=== PATIENT | female | born 1955 | race African-American/Black ===

== ENCOUNTER → 2019-10-05 | Outpatient (CLI) | payer MEDICARE ==
[~2019-10-05] MED LIST: REGADENOSON INJ 0.4 MG/5 ML DISP.SYRIN IV ONE
--- NOTE | 2019-10-05 15:00 | DRAGON STRESS TEST REPORT ---
Pharmacological nuclear stress test Date: October 07, 2019 Indication: Chest pain, abnormal EKG Clinical history 64-year-old lady was seen as part of preoperative cardiovascular assessment prior to upcoming bilateral mastectomy. She reported episodes of chest pain. There is medical history of hypertension as well as nicotine dependence in the past. Procedure The patient presented to the stress lab. Initially rest images were obtained according to standard protocol after injection of 14.74 mCi of technetium 99m sestamibi. The patient's EKG and vital signs were monitored throughout the procedure. The patient received an injection of regadenoson 0.4 mg intravenously as part of pharmacological stress. The stress EKG did not show any evidence of for myocardial ischemia. Soon thereafter 42.6 mCi of technetium 99m sestamibi was injected according to standard protocol. The patient did not complain of chest pain during pharmacological stress. After a stipulated waiting. Stress images were obtained according to standard protocol. Raw, rest as well as stress as well as attenuation corrected images were reviewed. There was significant gut uptake, however this did not interfere with the quality of the study. There was motion which was corrected as well. Review of the images show uniform uptake of radioisotope throughout the myocardium. There is no convincing evidence of any reversible perfusion defects to suggest myocardial ischemia. There is small, mild intensity fixed defect in the apex suggestive of breast attenuation. Visually the ejection fraction is normal and is estimated at 60%. The TID ratio is1.14. There is normal contractility in the post stress images as well as rest images. Conclusion There is no evidence of myocardial ischemia on EKG by pharmacological stress Perfusion images do not show any reversible or fixed defects to suggest ischemia or infarction. There is normal myocardial contractility The left ventricular ejection fraction is preserved and is estimated at 60%. The patient will be given an appointment to discuss these test results. [facility]
--- NOTE | 2019-10-05 15:10 | XCELERA REPORT ---
[address] [address] Transthoracic Echocardiogram Report Name: MUSA HOLT Age: 64 yrs Gender: Female : 1955 Patient Status: Outpatient Patient Location: RAD Study Date: 10/05/2019 09:22 AM History: Chest pain Preop cardiovascular assesment Height: 65 in Weight: 216 lb BSA: 2.0 m2 Procedure: A complete two-dimensional transthoracic echocardiogram was performed (2D, M-mode, spectral and color flow Doppler). The study was technically difficult with many images being suboptimal in quality. Reason For Study: SOB Previous Evaluation: No previous studies were available. History: Chest pain. HTN. Ordering Physician: CHANDLER HARRISON Performed By: Jana West Interpretation Summary Left ventricular systolic function is normal. The Ejection Fraction estimate is 55-60% The right ventricle is normal in size and function. There is a trace amount of mitral regurgitation There is no aortic valve stenosis There is a trace amount of tricuspid regurgitation There is no pericardial effusion. MMode/2D Measurements & Calculations RVDd: 2.6 cm LVIDd: 4.7 cm FS: 39.5 % Ao root diam: 2.9 cm IVSd: 1.00 cm LVIDs: 2.8 cm EDV(Teich): 101.4 ml Ao root area: 6.8 cm2 LVPWd: 0.90 cm ESV(Teich): 30.4 ml EF(Teich): 70.1 % Doppler Measurements & Calculations MV E max janki: MV dec slope: Ao V2 max: LV V1 max P.2 cm/sec 360.1 cm/sec2 108.8 cm/sec 3.0 mmHg MV A max janki: MV dec time: 0.24 secAo max P.7 mmHgLV V1 max: 72.7 cm/sec 86.8 cm/sec MV E/A: 1.2 PA V2 max: PI end-d janki: TR max janki: 67.3 cm/sec 101.2 cm/sec 180.0 cm/sec PA max P.8 mmHg TR max P.0 mmHg Left Ventricle The left ventricle is normal in size. There is borderline concentric left ventricular hypertrophy. Left ventricular systolic function is normal. The Ejection Fraction estimate is 55-60%. Doppler measurements suggest pseudonormalized left ventricular relaxation, which is associated with grade II/IV or mild to moderate diastolic dysfunction. No regional wall motion abnormalities noted. Right Ventricle The right ventricle is normal in size and function. Atria The right atrium is normal. The left atrial size is normal. Mitral Valve The mitral valve is grossly normal. There is a trace amount of mitral regurgitation. Aortic Valve The aortic valve is normal in structure and function. The aortic valve is trileaflet. The aortic valve opens well. There is no aortic valve stenosis. No aortic regurgitation is present. Tricuspid Valve The tricuspid valve is normal in structure and function. There is a trace amount of tricuspid regurgitation. Tricuspid regurgitation jet envelope not well defined to measure RV systolic pressure accurately. Doppler findings do not suggest pulmonary hypertension. Pulmonic Valve The pulmonic valve is normal in structure and function. There is a mild amount of pulmonic regurgitation. Great Vessels The aortic root is normal size. Effusions There is no pericardial effusion. : CHANDLER HARRISON Anil
== END ==
LOC: RAD 07:38
PROVIDERS: ATTEND Internal Medicine
DX: R07.9 Chest pain, unspecified (principal); R06.02 Shortness of breath; I10 Essential (primary) hypertension; F17.201 Nicotine dependence, unspecified, in remission
CPT/HCPCS: 93306; 93017; 78452; A9500; J2785; Q9969